=== PATIENT | male | born 1955 | race Caucasian/White ===

== ENCOUNTER 2016-07-12 18:46 | Emergency (ER) | payer OTHER ==
[~2016-07-12 18:46] MED LIST: ATIVAN0.5 M1 PO; MINOCYCLINE HC100 M1 PO; NO MEDICATIONS
[2016-07-12] MEDS ORDERED: NO MEDICATIONS (18:51)
== END 2016-07-13 06:55 | disposition home or self-care (01) ==
LOC: SED 18:46
DX: F10.229 Alcohol dependence with intoxication, unspecified (principal); Z91.018 Allergy to other foods
CPT/HCPCS: 99282

== ENCOUNTER 2016-07-14 16:34 | Inpatient (IN) | payer OTHER ==
--- NOTE | ~2016-07-14 | DS ---
Unit #: [id number] #: [id number] Patient: PEPPER VOGT [id number] [facility] [address] [place] [address] [id number] I MR#: [id number] NAME: PEPPER VOGT ROOM: [facility] Age: 60 Sex: M Admission Date: 07/14/2016 : 1955 Discharge Date: Attending Physician: Bienvenido Silva M.D. Primary Care Physician: Primary Care Physician No DISCHARGE SUMMARY REASON FOR ADMISSION The patient is a 60-year-old, single, white male, admitted with increasing abuse of alcohol and suicidal ideation. HOSPITAL COURSE The patient was admitted to the [facility] and placed on suicide precautions. A routine detoxification protocol for alcohol was ordered. The patient's participation within therapeutic milieu was less than optimal. By 07/19/2016, the patient was requesting discharge citing a need to return to his seeming to be foreclosed upon apartment. Discharge was ordered to take place on 07/20/2016. FINAL DIAGNOSES Alcohol use disorder; mood disorder, unspecified. DISPOSITION ON DISCHARGE The patient is discharged on no psychotropic or other medications. FOLLOWUP Followup will take place through the auspices of community mental health and chemical dependency treatment resources. PROGNOSIS The patient's prognosis remains guarded. Dictated by... Bienvenido Silva M.D. CB/magdalena TD: 07/19/2016 17:48 JOB #: [id number] Unit #: [id number] #: [id number] Patient: PEPPER VOGT DISCHARGE SUMMARY Page 1 of 1 X Bienvenido Silva MD X DISCHARGE SUMMARY
--- NOTE | ~2016-07-14 | PN ---
Unit #: [id number] #: [id number] Patient: PEPPER VOGT [id number] [facility] [address] [place] [address] [id number] MR#: [id number] NAME: PEPPER VOGT ROOM: P171 Age: 60 Sex: M Admission Date: 07/14/2016 : 1955 Attending Physician: Bienvenido Silva M.D. Admitting Physician: Bienvenido Silva M.D. Primary Care Physician: Primary Care Physician Jenni DE ANDA PROGRESS NOTES DATE 07/18/2016 DISCUSSION The patient is more active in the therapeutic milieu and is actually attending group today. His detox continues uneventfully. He continues to express hopelessness and suicidal ideation however. Dictated by... Bienvenido Silva M.D. CB/william TD: 07/18/2016 11:40 JOB #: [id number] [facility] PROGRESS NOTES Page 1 of 1 X Bienvenido Silva MD X PROGRESS NOTE
--- NOTE | ~2016-07-14 | PA ---
Unit #: [id number] #: [id number] Patient: PEPPER VOGT [id number] [facility] [address] [place] [address] [id number] MR#: [id number] NAME: PEPPER VOGT [facility] Age: 60 Sex: M Admission Date: 07/14/2016 : 1955 Date of Assessment: 07/15/2016 Attending Physician: Bienvenido Silva M.D. Admitting Physician: Bienvenido Silva M.D. Primary Care Physician: Primary Care Physician No PSYCHIATRIC ASSESSMENT IDENTIFYING INFORMATION The patient is a 60-year-old white male admitted to the [facility] unit after he had presented to this facility after he had attempted suicidal ideation by cutting his wrist. INFORMANT(S) Patient, patient's reliability is poor. CHIEF COMPLAINT I don't want to live no more. HISTORY OF PRESENT ILLNESS The patient is a 60-year-old white male with a long and well documented history of alcohol dependence. He is admitted to the hospital after he had made a superficial cut on his left wrist while intoxicated. The patient reports that he recently learned that he will lose his housing that had been provided by [facility] secondary to his having entertained multiple visitors at that [facility]. The patient is angry and hopeless related to this. He has been drinking heavy alcohol use since his release from [facility] on the 02 of July. The patient does complain of a history of DTs with alcohol withdrawal. He was last discharged from this facility on 03/15/2016 under similar circumstances. For more complete history of illness please refer to previous dictated notes. PAST PSYCHIATRIC HISTORY Reviewed, no changes. PAST MEDICAL HISTORY Reviewed no changes. MEDICATIONS None. ALLERGIES None. FAMILY HISTORY Reviewed, no changes. SOCIAL HISTORY Reviewed, no changes. Unit #: [id number] #: [id number] Patient: PEPPER VOGT MENTAL STATUS EXAM At this time, reveals the patient to be a disheveled white male appearing significantly older than his stated age of 60 years. He is in no apparent physical distress at the time of examination. He is awake, alert, and oriented in all spheres. His mood is dysphoric and irritable. His affect congruent. Speech is generally relevant and coherent. There are no gross deficits in memory or cognition noted. Intelligence is judged to be in the low average range based on fund of knowledge. The patient is less than optimally cooperative during the interview. He continues to endorse positive suicidal ideation. He denies homicidal ideation. He denies any psychotic symptoms. His judgement and insight appear to be intact. ASSETS AND LIABILITIES Patient's assets to be assessed. Liabilities, lack of resources, homelessness, sociopathy. ADMITTING DIAGNOSIS Alcohol use disorder, dysthymic disorder, antisocial personality disorder. PSYCHIATRIC PLAN/TREATMENT GOALS The patient remains hospitalized for safety and stabilization. Routine detoxification protocol for alcohol has been initiated and the suicidal precautions are in place. It is my suspicion that the patient's claims of suicidal ideation are related to his pending homeless status and I have gently but firmly confronted the patient related thereto redirecting his expectations about this facility can and cannot do with regards to that. ESTIMATED LENGTH OF STAY Five to seven days. Dictated by... Bienvenido Silva M.D. OSMIN/william TD: 07/16/2016 05:38 JOB #: [id number] PSYCHIATRIC ASSESSMENT Page 1 of 1 X Bienvenido Silva MD X PSYCHIATRIC ASSESSMENT
--- NOTE | ~2016-07-14 | HP ---
Unit #: [id number] #: [id number] Patient: ESCOBAR VOGT [id number] [place] [address] [id number] I MR#: [id number] NAME: ESCOBAR VOGT ROOM: P171 Age: 60 Sex: M Admission Date: 07/14/2016 : 1955 Attending Physician: Bienvenido Silva M.D. Admitting Physician: Bienvenido Silva M.D. Primary Care Physician: Primary Care Physician No HISTORY AND PHYSICAL HISTORY OF PRESENT ILLNESS Escobar is a 60 year old admitted to [facility] because of his continued abuse of alcohol. He has had numerous admissions to this facility for treatment of the same. PAST MEDICAL HISTORY Long history of alcohol abuse. PAST SURGICAL HISTORY Nothing reported. ALLERGIES No known drug allergies. SOCIAL HISTORY He smokes one pack per day. Drinks 10 to 12 beers on a daily basis. Denies illicit drug use. FAMILY HISTORY Medically noncontributory. REVIEW OF SYSTEMS CONSTITUTIONAL: No fever or chills. HEENT: Denies any sore throat, ear pain or runny nose. CARDIOVASCULAR: Denies chest pain, irregular heart rhythm or palpitations. CHEST: Denies shortness of breath or cough. No hemoptysis. GASTROINTESTINAL: Denies nausea, vomiting, diarrhea or chronic constipation. ENDOCRINE: Denies history of increased thirst or urination. No recent significant weight loss or gain. GENITOURINARY: Denies dysuria, frequency, or hematuria. SKIN: Denies any rashes. HEMATOLOGIC: Denies history of increased bleeding or bruising. MUSCULOSKELETAL: Denies any hot, swollen joints. No generalized muscle pain. NEUROLOGIC: Denies problems with vision or speech. No frequent, severe headaches. No numbness, tingling or weakness in any extremities. Denies loss of bladder or bowel control. CURRENT MEDICATIONS Detox protocol Unit #: [id number] #: [id number] Patient: ESCOBAR VOGT PHYSICAL EXAMINATION GENERAL: Alert, appearing much older than his stated age of 60. VITAL SIGNS: Blood pressure 132/86, heart rate 80, respirations 16, temperature 98.6. WEIGHT: 170 pounds. HEIGHT: 5'11". SKIN: Warm and dry without rash or lesion. HEENT: Normocephalic. TMs not viewed. Oral and nasal passages clear. Conjunctivae clear. Pupils equal, round and reactive to light and accommodation. Extraocular movements intact. NECK: Supple without lymphadenopathy or thyromegaly. HEART: Regular rate and rhythm without murmur. LUNGS: Clear. ABDOMEN: Soft, nontender. : Not done. EXTREMITIES: No evidence of cyanosis, clubbing or edema. Moves all extremities without focal deficit. NEUROLOGICAL: Grossly within normal limits. Cranial Nerves: II: Visual valdez are intact. III, IV AND : Extraocular movements are intact. Pupils are equal, round and reactive to light. V: Facial sensation is grossly normal. VII: Facial movements and expression are normal. VIII: Auditory acuity grossly intact. IX, X: Uvula is midline. Phonation is normal. XI: Patient shrugs shoulders and turns head normally. XII: Tongue protrudes in the midline. Sensory and Motor Function: Sensory and motor sensation is grossly normal. Motor: moves all extremities well. Coordination: Gait is normal. Deep Tendon Reflexes: Intact. IMPRESSION Psychiatric admission RECOMMENDATIONS PSYCHIATRIC: Per psychiatrist. MEDICAL: I see no contraindications to participating in facility's activities. MEDICAL PROGNOSIS Good. MEDICAL CONDITION Stable. Dictated by... Pepper Stewart P.A.-C. for Ebonie Flores/william TD: 07/16/2016 06:35 JOB #: [id number] Unit #: [id number] #: [id number] Patient: ESCOBAR VOGT HISTORY AND PHYSICAL Page 1 of 1 X Pepper Stewart HISTORY AND PHYSICAL
--- NOTE | ~2016-07-14 | PN ---
Unit #: [id number] #: [id number] Patient: PEPPER VOGT [id number] [facility] [address] [place] [address] [id number] I MR#: [id number] NAME: PEPPER VOGT ROOM: P171 Age: 60 Sex: M Admission Date: 07/14/2016 : 1955 Attending Physician: Bienvenido Silva M.D. Admitting Physician: Bienvenido Silva M.D. Primary Care Physician: Primary Care Physician Jenni DE ANDA PROGRESS NOTES DATE 07/17/2016 DISCUSSION The patient is a abed today and is in as much firmly confronted by this physician regarding his failure to attend in an unit therapeutic activity related to his chemical dependence. The patient states "I just cannot do it" He is firmly confronted with the fact that this physician will plan to discharge him should he continue to fail to attend appropriate therapeutic programming. His detox continues uneventfully. Dictated by... Bienvenido Silva M.D. CB/william TD: 07/18/2016 02:38 JOB #: [id number] [facility] PROGRESS NOTES Page 1 of 1 X Bienvenido Silva MD PROGRESS NOTE
--- NOTE | ~2016-07-14 | PN ---
Unit #: [id number] #: [id number] Patient: PEPPER VOGT [id number] [facility] [address] [place] [address] [id number] I MR#: [id number] NAME: PEPPER VOGT ROOM: P171 Age: 60 Sex: M Admission Date: 07/14/2016 : 1955 Attending Physician: Bienvenido Silva M.D. Admitting Physician: Bienvenido Silva M.D. Primary Care Physician: Primary Care Physician Jenni DE ANDA PROGRESS NOTES DATE 07/16/2016 DISCUSSION The patient complains of dysphoric mood and a great deal of physical discomfort today related to his ongoing symptoms of alcohol withdrawal. We continue current treatment, and the patient remains on suicide precautions given threats of suicide made prior to admission. Dictated by... Bienvenido Silva M.D. CB/jessica TD: 07/16/2016 13:16 JOB #: [id number] [facility] PROGRESS NOTES Page 1 of 1 X Bienvenido Silva MD PROGRESS NOTE
== END 2016-07-20 10:50 | DRG 897 ==
LOC: P1E 16:34
PROC: HZ2ZZZZ Detoxification Services for Substance Abuse Treatment (ICD-10-PCS; principal; 2016-07-15)
DX: F10.10 Alcohol abuse, uncomplicated (principal); R45.851 Suicidal ideations; F17.210 Nicotine dependence, cigarettes, uncomplicated; F39 Unspecified mood [affective] disorder
CPT/HCPCS: 86592

== ENCOUNTER 2016-07-21 18:22 | Emergency (ER) | payer OTHER | END 2016-07-22 02:45 | disposition home or self-care (01) | LOC: CED 18:22 | DX: F10.129 Alcohol abuse with intoxication, unspecified (principal); F17.210 Nicotine dependence, cigarettes, uncomplicated | CPT/HCPCS: 99282 ==

== ENCOUNTER 2016-07-23 12:16 | Emergency (ER) | payer OTHER ==
--- NOTE | ~2016-07-23 | CT4 ---
[facility] A Service of [facility] RADIOLOGY TEXT RESULTS PATIENT: EPPPER VOGT LOCATION: SED : 54 UNIT #: [id number] AGE: [address]: Benny Khan MD SEX: M ORDER DR: [id number] [address] [address] [id number] MR#: [id number] Acc #: [id number] NAME: PEPPER VOGT : 1955 SEX: M STUDY DATE/TIME: 07/23/2016 14:11 UNIT: SED ROOM: STUDY DESCRIPTION: CT Abd and Pelv Wo Cont Attending Physician: Benny Khan M.D. Ordering Physician: Benny Khan M.D. MEDICAL IMAGING REPORT This report is preliminary unless electronic signature is present. EXAM CT abdomen and pelvis without contrast HISTORY Back pain and constipation for 6 days. TECHNIQUE Axial 5 mm images were obtained through the abdomen and pelvis without IV or oral contrast. This CT exam was performed with one or more of the following radiation dose reduction techniques: automatic exposure control, adjustment of mA and/or kV according to patient size, and iterative reconstruction. FINDINGS Lung bases are clear. The liver, gallbladder, spleen, pancreas, adrenal glands and kidneys are normal in appearance. The aorta is normal in size. There is no adenopathy. I do not see evidence of bowel obstruction. There is 1 dilated fluid-filled loop of bowel in the mid-abdomen that I believe represents small intestine. It is up to 6.7 cm in transverse dimension. The colon is mostly collapsed. I do not see any postoperative changes. IMPRESSION 1. There are no acute findings. There is 1 long segment of bowel in the mid-abdomen extending down toward the bladder. It is much larger than normal for small intestine, measuring up to 6.7 cm in transverse dimension, but I do not see evidence of bowel inflammation or obstruction. The colon is not distended. Study is otherwise normal. [facility] A Service of [facility] RADIOLOGY TEXT RESULTS PATIENT: PEPPER VOGT LOCATION: SED : 54 UNIT #: [id number] AGE: [address]: Benny Khan MD SEX: M ORDER DR: Dictated by... Frederic Palacios M.D. THIS IS AN ELECTRONICALLY VERIFIED REPORT Frederic Palacios M.D. at 07/24/2016 7:03 AM FEL/pcl TD: 07/23/2016 22:35 JOB #: [id number] MEDICAL IMAGING REPORT Page 1 of 1
[2016-07-23 14:37] LABS: BASOPHIL# 0.1 X10e3 (0-0.3); BASOPHIL% 0.7 % (0-2.5); DIFF IND NO; HEMATOCRIT 36.8 % (38.0-50.0); HEMOGLOBIN 12.9 gm/dL (13.0-16.0); LYMPHOCYTE# 1.2 X10e3 (1.0-3.5); LYMPHOCYTE% 13.5 % (17.0-45.0); MEAN CELL VOLUME 99.3 FL (83-96); MEAN CORPUSCULAR HEMOGLOBIN 34.7 PG (28-34); MEAN CORPUSCULAR HGB CONC 34.9 g/dL (30-36); MEAN PLATELET VOLUME 6.6 FL (6.5-11.5); MONOCYTE# 1.6 X10e3 (0-1.0); MONOCYTE% 18.6 % (3.0-12.0); NEUTROPHIL# 5.8 X10e3 (1.5-7.1); NEUTROPHIL% 67.2 % (40-75); PLATELET COUNT 255 X10e3 (140-420); RED BLOOD COUNT 3.71 X10e (3.90-5.60); RED CELL DISTRIBUTION WIDTH 13.5 % (11.0-15.5); WHITE BLOOD COUNT 8.7 X10e3 (4.0-10.5)
[2016-07-23 14:38] LABS: URINE SOURCE CLEAN CATCH
[2016-07-23 14:43] LABS: URINE APPEARANCE CLEAR; URINE BILIRUBIN NEG (NEG); URINE BLOOD NEG (NEG); URINE COLOR YELLOW; URINE GLUCOSE NEG (NORM); URINE KETONE NEG (NEG); URINE LEUKOCYTE ESTERASE NEG (NEG); URINE NITRATE NEG (NEG); URINE PROTEIN TRACE (NEG); URINE SPECIFIC GRAVITY 1.025 (1.003-1.035)
[2016-07-23 15:00] LABS: ALBUMIN SERUM 3.8 g/dL (3.5-5.0); BILIRUBIN, DIRECT 0.2 mg/dL (0.0-0.2); BILIRUBIN,INDIRECT 0.3 mg/dL (0.0-0.9); BILIRUBIN,TOTAL 0.5 mg/dL (0.2-2.0); BUN/CREATININE RATIO 13.33; CALCIUM SERUM 8.6 mg/dL (8.4-10.2); CREATININE SERUM 0.6 mg/dL (0.6-1.4); GLOM FILT RATE Estimated 108.6 mL/min (>60); MICRO INDICATED? YES; PROTEIN TOTAL SERUM 7.4 g/dL (6.0-8.3)
[2016-07-23 15:02] LABS: CULTURE INDICATED? YES; URINE BACTERIA 1+ (NEG); URINE GRANULAR CAST 0-2 /[HPF]; URINE HYALINE CAST 0-2 /[HPF]; URINE MUCUS PRESENT; URINE RBC 0-2 /[HPF] (0-2); URINE SQUAMOUS EPITHELIAL CELL FEW /[HPF]; URINE WBC NEG /[HPF] (0-5); URINE WHITE BLOOD CELL CAST 0-2 /[HPF]
== END 2016-07-23 18:35 | disposition home or self-care (01) ==
LOC: SED 12:16
PROVIDERS: Emergency Medicine
DX: K59.00 Constipation, unspecified (principal); F10.129 Alcohol abuse with intoxication, unspecified; E87.1 Hypo-osmolality and hyponatremia
CPT/HCPCS: 36415; 74176; 80048; 80076; 81003; 83690; 85025; 87086; 96360; 99284

== ENCOUNTER 2016-08-02 22:02 | Emergency (ER) | payer OTHER | END 2016-08-03 06:37 | disposition home or self-care (01) | LOC: CED 22:02 | DX: F10.129 Alcohol abuse with intoxication, unspecified (principal); F17.200 Nicotine dependence, unspecified, uncomplicated | CPT/HCPCS: 99284 ==

== ENCOUNTER 2016-08-04 21:15 | Emergency (ER) | payer OTHER ==
--- NOTE | ~2016-08-04 | CR71 ---
[facility] A Service of [facility] RADIOLOGY TEXT RESULTS PATIENT: PEPPER VOGT LOCATION: [facility] : 54 UNIT #: [id number] AGE: [address]: Nitish Painting MD SEX: M ORDER DR: [id number] [facility] [address] [facility]. [place], [place] [address] [id number] E MR#: [id number] Acc #: [id number] NAME: PEPPER VOGT : 1955 SEX: M STUDY DATE/TIME: 08/04/2016 22:10 UNIT: [facility] ROOM: STUDY DESCRIPTION: CR Chest Single View Attending Physician: Nitish Painting M.D. Ordering Physician: Nitish Painting M.D. Primary Care Physician: No Primary Care Physician MEDICAL IMAGING REPORT This report is preliminary unless electronic signature is present EXAM Portable chest INDICATIONS Shortness of air. Chest pain today. PROCEDURE Frontal view chest. FINDINGS Heart size upper limits of normal. No dense consolidation. No pleural fluid or visible pneumothorax. IMPRESSION No active process. No dense consolidation Dictated by... Andre Menard M.D. THIS IS AN ELECTRONICALLY VERIFIED REPORT Andre Menard M.D. at 08/05/2016 9:32 AM BETY/martha TD: 08/04/2016 23:12 JOB #: [id number] MEDICAL IMAGING REPORT Page 1 of 1 COPY
[2016-08-04 22:44] LABS: BASOPHIL% 0.5 % (0-2.5); EOSINOPHIL% 0.6 % (0.0-7.0); HEMATOCRIT 36.2 % (38.0-50.0); HEMOGLOBIN 12.1 gm/dL (13.0-16.0); LYMPHOCYTE# 0.6 X10e3 (1.0-3.5); LYMPHOCYTE% 8.4 % (17.0-45.0); MEAN CELL VOLUME 101.2 FL (83-96); MEAN CORPUSCULAR HEMOGLOBIN 33.7 PG (28-34); MEAN CORPUSCULAR HGB CONC 33.3 g/dL (30-36); MEAN PLATELET VOLUME 7.1 FL (6.5-11.5); MONOCYTE# 0.5 X10e3 (0-1.0); NEUTROPHIL# 5.5 X10e3 (1.5-7.1); NEUTROPHIL% 82.5 % (40-75); PLATELET COUNT 203 X10e3 (140-420); RED BLOOD COUNT 3.58 X10e (3.90-5.60); RED CELL DISTRIBUTION WIDTH 14.4 % (11.0-15.5); WHITE BLOOD COUNT 6.7 X10e3 (4.0-10.5)
[2016-08-04 22:52] LABS: DIFF IND NO
[2016-08-04 23:17] LABS: CALCIUM SERUM 7.5 mg/dL (8.4-10.2); CREATININE SERUM 0.7 mg/dL (0.6-1.4); GLOM FILT RATE Estimated 101.9 mL/min (>60)
== END 2016-08-05 04:17 | disposition home or self-care (01) ==
LOC: CED 21:15
PROVIDERS: Emergency Medicine
DX: F10.129 Alcohol abuse with intoxication, unspecified (principal); E87.6 Hypokalemia; E87.1 Hypo-osmolality and hyponatremia; F17.200 Nicotine dependence, unspecified, uncomplicated
CPT/HCPCS: 36415; 71010; 80048; 85025; 96360; 99284; G0480

== ENCOUNTER 2016-08-14 20:05 | Emergency (ER) | payer OTHER | END 2016-08-15 00:50 | disposition home or self-care (01) | LOC: CED 20:05 | DX: F10.129 Alcohol abuse with intoxication, unspecified (principal); F17.200 Nicotine dependence, unspecified, uncomplicated | CPT/HCPCS: 99284 ==

== ENCOUNTER 2016-08-21 19:02 | Emergency (ER) | payer OTHER ==
[2016-08-21 19:55] LABS: URINE SOURCE CLEAN CATCH
[2016-08-21 19:57] LABS: URINE APPEARANCE CLEAR; URINE BILIRUBIN NEG (NEG); URINE BLOOD NEG (NEG); URINE COLOR YELLOW; URINE GLUCOSE NEG (NORM); URINE KETONE NEG (NEG); URINE LEUKOCYTE ESTERASE NEG (NEG); URINE NITRATE NEG (NEG); URINE PROTEIN NEG (NEG); URINE SPECIFIC GRAVITY <=1.005 (1.003-1.035); URINE UROBILINOGEN 0.2 MG/DL (NORM)
[2016-08-21 19:58] LABS: MICRO INDICATED? NO
== END 2016-08-21 21:42 | disposition home or self-care (01) ==
LOC: SED 19:02
PROVIDERS: Nurse Practitioner
DX: S23.3XXA Sprain of ligaments of thoracic spine, initial encounter (principal); F17.210 Nicotine dependence, cigarettes, uncomplicated; W18.39XA Other fall on same level, initial encounter; Y92.89 Other specified places as the place of occurrence of the external cause
CPT/HCPCS: 81003; 96372; 99284; J1885

== ENCOUNTER 2016-08-27 23:00 | Inpatient (IN) | payer OTHER ==
--- NOTE | ~2016-08-27 | PN ---
Unit #: [id number] #: [id number] Patient: PEPPER VOGT [id number] [facility] [address] [place] [address] [id number] I MR#: [id number] NAME: PEPPER VOGT ROOM: P208 Age: 60 Sex: M Admission Date: 08/28/2016 : 1955 Attending Physician: Bienvenido Silva M.D. Admitting Physician: Bienvenido Silva M.D. Primary Care Physician: Primary Care Physician Jenni DE ANDA PROGRESS NOTES DATE 08/30/2016 DISCUSSION The patient is abed today continuing to complain of significant symptoms of alcohol withdrawal as well as depressed mood and ongoing suicidal ideation. His expectations of inpatient care are today firmly redirection and I have discussed today with the patient possible initiation of disulfiram. He will be given information regarding this medication today and we will consider it's initiation in the next couple of days. Dictated by... Bienvenido Silva M.D. CB/william TD: 08/31/2016 03:09 JOB #: [id number] [facility] PROGRESS NOTES Page 1 of 1 X Bienvenido Silva MD PROGRESS NOTE
--- NOTE | ~2016-08-27 | DS ---
Unit #: [id number] #: [id number] Patient: PEPPER VOGT [id number] [facility] [address] [place] [address] [id number] I MR#: [id number] NAME: PEPPER VOGT ROOM: [facility] Age: 60 Sex: M Admission Date: 08/28/2016 : 1955 Discharge Date: 09/02/2016 Attending Physician: Bienvenido Silva M.D. Primary Care Physician: Primary Care Physician No DISCHARGE SUMMARY REASON FOR ADMISSION The patient is a 60-year-old white male, admitted to the [address] [place] [address] unit with recurrent abuse of alcohol. HOSPITAL COURSE The patient was admitted to the [address] [place] [address] unit and placed on routine detoxification protocol for alcohol. This physician did discuss initiation of Antabuse with the patient, however, the patient declined initiation of this medication. Otherwise, the patient remained seclusive to room with a little with any participation within therapeutic milieu. He requested discharge on 09/02/2016 and it was so ordered. FINAL DIAGNOSIS Alcohol use disorder. DISPOSITION ON DISCHARGE No psychotropic or other medications were ordered at the time of discharge. FOLLOWUP Followup will place through the auspices of community mental health resources. PROGNOSIS The patient's prognosis remains guarded. Dictated by... Bienvenido Silva M.D. CB/magdalena TD: 09/03/2016 06:25 JOB #: [id number] Unit #: [id number] #: [id number] Patient: PEPPER VOGT DISCHARGE SUMMARY Page 1 of 1 X Bienvenido Silva MD X DISCHARGE SUMMARY
--- NOTE | ~2016-08-27 | PN ---
Unit #: [id number] #: [id number] Patient: PEPPER VOGT [id number] [facility] [address] [place] [address] [id number] I MR#: [id number] NAME: PEPPER VOGT ROOM: P208 Age: 60 Sex: M Admission Date: 08/28/2016 : 1955 Attending Physician: Bienvenido Silva M.D. Admitting Physician: Bienvenido Silva M.D. Primary Care Physician: Primary Care Physician Jenni JACKSON NOTES DATE 08/31/2016 DISCUSSION The patient continues to complain of severe symptoms of depression and is reporting that he is "unable to walk. I will ask for medical consult regarding the patient's issues of difficulty with ambulation. His detox continued uneventfully and his expectations of inpatient care are today firmly redirected. Dictated by... Bienvenido Silva M.D. CB/william TD: 08/31/2016 21:17 JOB #: [id number] [facility] JACKSON NOTES Page 1 of 1 X Bienvenido Silva MD PROGRESS NOTE
--- NOTE | ~2016-08-27 | PN ---
Unit #: [id number] #: [id number] Patient: PEPPER VOGT [id number] [facility] [address] [place] [address] [id number] I MR#: [id number] NAME: PEPPER VOGT ROOM: P208 Age: 60 Sex: M Admission Date: 08/28/2016 : 1955 Attending Physician: Bienvenido Silva M.D. Admitting Physician: Bienvenido Silva M.D. Primary Care Physician: Primary Care Physician No [facility] PROGRESS NOTES DATE 09/01/2016 DISCUSSION The patient is ambulating better today and his detox continues uneventfully. Should he sustain progress, discharge will likely take place tomorrow. Dictated by... Bienvenido Silva M.D. CB/karen TD: 09/01/2016 15:43 JOB #: [id number] [facility] PROGRESS NOTES Page 1 of 1 X Bienvenido Silva MD X PROGRESS NOTE
--- NOTE | ~2016-08-27 | HP ---
Unit #: [id number] #: [id number] Patient: ESCOBAR VOGT [id number] [place] [address] [id number] MR#: [id number] NAME: ESCOBAR VOGT ROOM: P208 Age: 60 Sex: M Admission Date: 08/28/2016 : 1955 Attending Physician: Bienvenido Silva M.D. Admitting Physician: Bienvenido Silva M.D. Primary Care Physician: Primary Care Physician No HISTORY AND PHYSICAL HISTORY OF PRESENT ILLNESS Escobar is a 60 year old with long history of alcohol abuse. He continues to drink. He is detoxing. He has had multiple admissions to this facility for the same. PAST MEDICAL HISTORY 1. Long history of alcohol abuse. 2. History of colon polyps. PAST SURGICAL HISTORY Polypectomy ALLERGIES No known drug allergies. SOCIAL HISTORY Smokes one pack per day. Drinks at least 12 beers on a daily basis. Denies illicit drug use. FAMILY HISTORY Medically noncontributory. REVIEW OF SYSTEMS CONSTITUTIONAL: No fever or chills. HEENT: Denies any sore throat, ear pain or runny nose. CARDIOVASCULAR: Denies chest pain, irregular heart rhythm or palpitations. CHEST: Denies shortness of breath or cough. No hemoptysis. GASTROINTESTINAL: Denies nausea, vomiting, diarrhea or chronic constipation. ENDOCRINE: Denies history of increased thirst or urination. No recent significant weight loss or gain. GENITOURINARY: Denies dysuria, frequency, or hematuria. SKIN: Denies any rashes. HEMATOLOGIC: Denies history of increased bleeding or bruising. MUSCULOSKELETAL: Denies any hot, swollen joints. No generalized muscle pain. NEUROLOGIC: Denies problems with vision or speech. No frequent, severe headaches. No numbness, tingling or weakness in any extremities. Denies loss of bladder or bowel control. CURRENT MEDICATIONS Detox protocol Unit #: [id number] #: [id number] Patient: ESCOBAR VOGT PHYSICAL EXAMINATION GENERAL: Alert, appearing much older than his stated age of 60, in no apparent distress. VITAL SIGNS: Blood pressure 120/96, heart rate 80, respirations 16, temperature 98.6. WEIGHT: 175 pounds. HEIGHT: 5'11". SKIN: Warm and dry without rash or lesion. HEENT: Normocephalic. TMs not viewed. Oral and nasal passages clear. Conjunctivae clear. Pupils equal, round and reactive to light and accommodation. Extraocular movements intact. NECK: Supple without lymphadenopathy or thyromegaly. HEART: Regular rate and rhythm without murmur. LUNGS: Clear. ABDOMEN: Soft, nontender. : Not done. EXTREMITIES: No evidence of cyanosis, clubbing or edema. Moves all extremities without focal deficit. NEUROLOGICAL: Grossly within normal limits. Cranial Nerves: II: Visual valdez are intact. III, IV AND : Extraocular movements are intact. Pupils are equal, round and reactive to light. V: Facial sensation is grossly normal. VII: Facial movements and expression are normal. VIII: Auditory acuity grossly intact. IX, X: Uvula is midline. Phonation is normal. XI: Patient shrugs shoulders and turns head normally. XII: Tongue protrudes in the midline. Sensory and Motor Function: Sensory and motor sensation is grossly normal. Motor: moves all extremities well. Coordination: Gait is normal. Deep Tendon Reflexes: Intact. IMPRESSION Psychiatric admission RECOMMENDATIONS PSYCHIATRIC: Per psychiatrist. MEDICAL: I see no contraindications to participating in facility's activities. MEDICAL PROGNOSIS Good. MEDICAL CONDITION Stable. Dictated by... Satya NevesAMaximiliano. for Ebonie Flores/william TD: 08/29/2016 21:40 JOB #: [id number] Unit #: [id number] #: [id number] Patient: ESCOBAR VOGT HISTORY AND PHYSICAL Page 1 of 1 X Pepper Stewart HISTORY AND PHYSICAL
--- NOTE | ~2016-08-27 | PA ---
Unit #: [id number] #: [id number] Patient: PEPPER VOGT [id number] [facility] [address] [place] [address] [id number] I MR#: [id number] NAME: PEPPER VOGT ROOM: [facility] Age: 60 Sex: M Admission Date: 08/28/2016 : 1955 Date of Assessment: 08/29/2016 Attending Physician: Bienvenido Silva M.D. Admitting Physician: Bienvenido Silva M.D. Primary Care Physician: Primary Care Physician No PSYCHIATRIC ASSESSMENT IDENTIFYING INFORMATION The patient is a 60-year-old single white male admitted to the [address] [place] [address] with recurrent abuse of alcohol and claimed suicidal ideation. CHIEF COMPLAINT None given. INFORMANT(S) Patient and chart, reliability good. HISTORY OF PRESENT ILLNESS The patient is a 60-year-old white male admitted to the hospital in a state of intoxication. The patient reported that he was brought to [facility] but is uncertain how he got to that facility. The patient had reported positive suicidal ideation with plan to shoot himself. The patient has a history of multiple previous admissions to this facility but has shown little investment in post-discharge treatment, and in fact has shown little investment in treatment while in the hospital. He was last discharged from this facility on 07/20/2016 but maintained sobriety for no significant period of time. When seen today, the patient continues to endorse positive suicidal ideation. He denies homicidal ideation. He exhibits no signs or symptoms of withdrawal. PAST PSYCHIATRIC HISTORY As above. PAST MEDICAL HISTORY Reviewed, no changes. MEDICATIONS None. ALLERGIES None. FAMILY HISTORY Reviewed, no changes. SOCIAL HISTORY Reviewed, no changes. MENTAL STATUS EXAMINATION Examination at this time reveals the patient to be an obese disheveled Unit #: [id number] #: [id number] Patient: PEPPER VOGT white male appearing significantly older than his stated age. He is in no apparent physical distress at the time of examination. He is awake, alert, and oriented in all spheres. His mood is dysphoric, his affect blunted. Speech is generally well coherent. No gross deficits in memory or cognition noted. Intelligence is judged to be in the low average range based on fund of knowledge. The patient is cooperative throughout the interview. He is currently endorsing positive suicidal ideation. He denies homicidal ideation and denies any psychotic symptoms. His judgment and insight appear to be significantly impaired. ASSETS AND LIABILITIES The patient's assets are to be assessed. Liabilities: Lack of resources. DIAGNOSTIC IMPRESSION 1. Alcohol use disorder. 2. Dysthymic disorder. TREATMENT PLAN The patient remains hospitalized for safety and stabilization. Suicide precautions remain in place. Routine detoxification protocol has been ordered. The patient will participate in appropriate order of milieu activities and transfer to a chemical dependence unit will be ordered though the patient's participation on such unit is highly unlikely. ESTIMATED LENGTH OF STAY 5 days. Dictated by... Bienvenido Silva M.D. Bonita TD: 08/29/2016 14:13 JOB #: [id number] PSYCHIATRIC ASSESSMENT Page 1 of 1 X Bienvenido Silva MD X PSYCHIATRIC ASSESSMENT
[2016-08-29 10:16] LABS: BASOPHIL% 0.9 % (0-2.5); EOSINOPHIL# 0.1 X10e3 (0-0.7); EOSINOPHIL% 3.2 % (0.0-7.0); HEMATOCRIT 34.9 % (38.0-50.0); HEMOGLOBIN 11.6 gm/dL (13.0-16.0); LYMPHOCYTE% 22.1 % (17.0-45.0); MEAN CORPUSCULAR HEMOGLOBIN 34.3 PG (28-34); MEAN CORPUSCULAR HGB CONC 33.3 g/dL (30-36); MEAN PLATELET VOLUME 7.8 FL (6.5-11.5); MONOCYTE# 0.8 X10e3 (0-1.0); MONOCYTE% 17.6 % (3.0-12.0); NEUTROPHIL# 2.5 X10e3 (1.5-7.1); NEUTROPHIL% 56.2 % (40-75); PLATELET COUNT 168 X10e3 (140-420); RED BLOOD COUNT 3.39 X10e (3.90-5.60); RED CELL DISTRIBUTION WIDTH 15.5 % (11.0-15.5); WHITE BLOOD COUNT 4.4 X10e3 (4.0-10.5)
[2016-08-29 10:24] LABS: ALBUMIN SERUM 2.7 g/dL (3.5-5.0); BILIRUBIN,TOTAL 0.5 mg/dL (0.2-2.0); BUN/CREATININE RATIO 13.33; CALCIUM SERUM 8.2 mg/dL (8.4-10.2); CREATININE SERUM 0.6 mg/dL (0.6-1.4); GLOM FILT RATE Estimated 108.6 mL/min (>60); POTASSIUM 3.9 mmol/L (3.5-5.1); PROTEIN TOTAL SERUM 5.3 g/dL (6.0-8.3)
[2016-08-29 10:26] LABS: DIFF IND NO
[2016-09-01 07:59] LABS: URINE SOURCE CLEAN CATCH
[2016-09-01 09:54] LABS: URINE APPEARANCE CLEAR; URINE BILIRUBIN NEG (NEG); URINE BLOOD NEG (NEG); URINE COLOR YELLOW; URINE GLUCOSE NEG (NEG); URINE KETONE NEG (NEG); URINE LEUKOCYTE ESTERASE NEG (NEG); URINE NITRATE NEG (NEG); URINE PROTEIN NEG (NEG); URINE SPECIFIC GRAVITY 1.015 (1.003-1.035); URINE UROBILINOGEN 0.2 MG/DL (NEG)
[2016-09-01 10:11] LABS: AMPHETAMINE NEG (NEG); BARBITURATES POS (NEG); BENZODIAZEPINES POS (NEG); COCAINE NEG (NEG); MARIJUANA NEG (NEG); OPIATES NEG (NEG); TRICYCLIC ANTIDEPRESSANTS NEG (NEG); U METHADONE NEG (NEG)
== END 2016-09-02 16:12 | disposition home or self-care (01) | DRG 897 ==
LOC: P2S 08-28 19:21 → P1S 08-28 19:21 → P2S 08-29 16:15
PROVIDERS: Specialist
PROC: HZ2ZZZZ Detoxification Services for Substance Abuse Treatment (ICD-10-PCS; principal; 2016-08-28)
DX: F10.10 Alcohol abuse, uncomplicated (principal); F34.1 Dysthymic disorder; F17.210 Nicotine dependence, cigarettes, uncomplicated; Z86.010 Personal history of colon polyps
CPT/HCPCS: 80053; 80307; 81003; 85025; 86592

== ENCOUNTER 2016-09-02 23:09 | Emergency (ER) | payer OTHER | END 2016-09-03 07:52 | disposition short-term general hospital (02) | LOC: CED 23:09 | DX: F10.129 Alcohol abuse with intoxication, unspecified (principal); Y90.8 Blood alcohol level of 240 mg/100 ml or more; R45.851 Suicidal ideations; F17.200 Nicotine dependence, unspecified, uncomplicated | CPT/HCPCS: 36415; 96360; 96361; 99285; G0480 ==

== ENCOUNTER 2016-09-03 02:00 | Inpatient (IN) | payer OTHER ==
[~2016-09-03] VITALS: Ht 180.3 cm; Wt 79.4 kg
--- NOTE | ~2016-09-03 | HP ---
Unit #: [id number] #: [id number] Patient: PEPPER VOGT [id number] [facility] [address] [place] [address] [id number] I MR#: [id number] NAME: PEPPER VOGT ROOM: P114 Age: 60 Sex: M Admission Date: 09/03/2016 : 1955 Attending Physician: Bienvenido Silva M.D. Admitting Physician: Bienvenido Silva M.D. Primary Care Physician: Generic Doctor Not In System HISTORY AND PHYSICAL NOTE The patient is a 60-year-old male admitted to [facility] on 09/03/2016 to detox from alcohol. The patient had a recent admission on 08/28/2016 where full history and physical was completed. That history and physical has been reviewed. No changes need to be made. Dictated by... Bobbi Cristina A.P.R.N. EF/bzg TD: 09/03/2016 15:35 JOB #: [id number] HISTORY AND PHYSICAL Page 1 of 1 X BOBBI CRISTINA APRN X HISTORY AND PHYSICAL
--- NOTE | ~2016-09-03 | PN ---
Unit #: [id number] #: [id number] Patient: PEPPER VOGT [id number] [facility] [address] [place] [address] [id number] I MR#: [id number] NAME: PEPPER VOGT ROOM: 14 Age: 60 Sex: M Admission Date: 09/03/2016 : 1955 Attending Physician: Bienvenido Silva M.D. Admitting Physician: Bienvenido Silva M.D. Primary Care Physician: Generic Doctor Not In System [facility] PROGRESS NOTES DATE 09/04/2016 DISCUSSION The patient is soundly sleeping on his room lockout today. We continue room lockout to assure the patient's safety as he had made suicidal threats while intoxicated at the time of admission. Dictated by... Bienvenido Silva M.D. CB/william TD: 09/04/2016 22:51 JOB #: [id number] [facility] PROGRESS NOTES Page 1 of 1 X Bienvenido Silva MD X PROGRESS NOTE
--- NOTE | ~2016-09-03 | DS ---
Unit #: [id number] #: [id number] Patient: PEPPER VOGT [id number] [facility] [address] [place] [address] [id number] MR#: [id number] NAME: PEPPER VOGT ROOM: [facility] Age: 60 Sex: M Admission Date: 09/03/2016 : 1955 Discharge Date: 09/06/2016 Attending Physician: Bienvenido Silva M.D. Primary Care Physician: Generic Doctor Not In System DISCHARGE SUMMARY REASON FOR ADMISSION The patient is a 60-year-old white male, admitted to the [address] [place] [address] unit after he had left this facility, but gotten intoxicated and returned claiming to be suicidal. HOSPITAL COURSE The patient was admitted to the [address] [place] [address] and placed on room lockout precautions. A routine detoxification protocol for alcohol was not initiated as the patient had only been out of the hospital for less than 24 hours. The patient's participation within therapeutic milieu was less than optimal. By 09/06/2016, however, he exhibited no signs or symptoms of withdrawal and requested discharge. Denying suicidal ideation. It was so ordered. FINAL DIAGNOSES Alcohol use disorder; substance-induced mood disorder. DISPOSITION ON DISCHARGE No psychotropic or other medications were ordered at the time of discharge. FOLLOWUP Followup will take place through the auspices of community mental health and chemical dependency treatment resources. PROGNOSIS The patient's prognosis remains guarded. Dictated by... Bienvenido Silva M.D. CB/magdalena TD: 09/06/2016 22:49 JOB #: [id number] Unit #: [id number] #: [id number] Patient: PEPPER VOGT DISCHARGE SUMMARY Page 1 of 1 X Bienvenido Silva MD X DISCHARGE SUMMARY
--- NOTE | ~2016-09-03 | PA ---
Unit #: [id number] #: [id number] Patient: PEPPER VOGT [id number] [facility] [address] [place] [address] [id number] I MR#: [id number] NAME: PEPPER VOGT ROOM: [facility] Age: 60 Sex: M Admission Date: 09/03/2016 : 1955 Date of Assessment: 09/03/2016 Attending Physician: Bienvenido Silva M.D. Admitting Physician: Bienvenido Silva M.D. Primary Care Physician: Generic Doctor Not In System PSYCHIATRIC ASSESSMENT IDENTIFYING INFORMATION The patient is a 60-year-old white male just discharged from this facility yesterday. He became intoxicated almost immediately and returned to [facility] with a blood alcohol or 0.246. He was reporting positive suicidal ideation on admission with a plan to "cut his throat." CHIEF COMPLAINT None given. INFORMANT Patient and chart, reliability good. HISTORY OF PRESENT ILLNESS The patient is a 60-year-old white male who left this facility yesterday, became intoxicated almost immediately, and then presented to [facility] where he was medically cleared and released. He was then found down on the loan at this facility after attempting to gain access here. He had reported positive suicidal ideation at the time of admission but today denies such thinking. For more complete history of present illness, please refer to previously dictated notes. PAST PSYCHIATRIC HISTORY Reviewed, no changes. PAST MEDICAL HISTORY Reviewed, no changes. MEDICATIONS None. ALLERGIES None. FAMILY HISTORY Reviewed, no changes. SOCIAL HISTORY Reviewed, no changes. MENTAL STATUS EXAMINATION Examination at this time reveals the patient to be a disheveled white male appearing his stated age. He is dressed in hospital garb. He is awake, alert, and oriented in all spheres. His mood is calm, his affect Unit #: [id number] #: [id number] Patient: PEPPER VOGT constricted. Speech is generally well-coherent. There are no gross deficits in memory or cognition noted. Intelligence is judged to be in the low average range, based on fund of knowledge. The patient is generally cooperative during interview. He is currently denying suicidal or homicidal ideation, and denies any psychotic symptoms. His judgment and insight appear to be at baseline. ASSETS AND LIABILITIES The patient's assets are to be assessed. Liabilities: Ongoing substance use, lack of investment in treatment. DIAGNOSTIC IMPRESSION 1. Alcohol use disorder. 2. Substance-induced mood disorder. TREATMENT PLAN The patient remains hospitalized for safety and stabilization. He is on a [id number]. I will not reinitiate a detoxification protocol as the patient was just out of the hospital for 1 day. I will, however, given the patient's threat of suicide order that the patient be placed on suicide precautions and room lockout from 6 a.m. to 10 p.m. in order to assure that he is safe. ESTIMATED LENGTH OF STAY 5 days. Dictated by... Bienvenido Silva M.D. Bonita TD: 09/03/2016 13:50 JOB #: [id number] PSYCHIATRIC ASSESSMENT Page 1 of 1 X Bienvenido Silva MD X PSYCHIATRIC ASSESSMENT
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
== END 2016-09-06 16:05 | disposition home or self-care (01) | DRG 897 ==
LOC: P1E 08:13 → P1S 08:13
PROC: HZ2ZZZZ Detoxification Services for Substance Abuse Treatment (ICD-10-PCS; principal; 2016-09-03)
DX: F10.129 Alcohol abuse with intoxication, unspecified (principal); Y90.8 Blood alcohol level of 240 mg/100 ml or more

== ENCOUNTER 2016-09-13 18:19 | Emergency (ER) | payer OTHER ==
[~2016-09-13] VITALS: Ht 170.2 cm; Wt 79.4 kg
== END 2016-09-14 03:05 | disposition home or self-care (01) ==
LOC: CED 18:19
DX: F10.120 Alcohol abuse with intoxication, uncomplicated (principal); F17.210 Nicotine dependence, cigarettes, uncomplicated
CPT/HCPCS: 99284

== ENCOUNTER 2016-09-16 16:17 | Emergency (ER) | payer OTHER ==
[~2016-09-16] VITALS: Ht 182.9 cm; Wt 77.1 kg
--- NOTE | ~2016-09-16 | EKG ---
PATIENT: PEPPER VOGT UNIT #: [id number] Ventricular Rate: 93 BPM Atrial Rate: 93 BPM P-R Interval: 188 ms QRS Duration: 82 ms Q-T Interval: 374 ms QTC Calculation(Bezet): 465 ms P Cabot: 58 degrees Calculated R Cabot: 35 degrees Calculated T Cabot: 54 degrees Diagnosis Line: Sinus rhythm with Premature atrial complexes with Diagnosis Line: Aberrant conduction Diagnosis Line: Septal infarct , age undetermined Diagnosis Line: Abnormal ECG Diagnosis Line: When compared with ECG of 12-OCT-2015 15:38, Diagnosis Line: Aberrant conduction is now Present Diagnosis Line: Confirmed by JENNIFER WOLFF MD ([id number]) on Diagnosis Line: 09/19/2016 8:53:27 AM INTERPRETING MD: NEW ALON[place]
--- NOTE | ~2016-09-16 | CR72 ---
[facility] A Service of [facility] RADIOLOGY TEXT RESULTS PATIENT: PEPPER VOGT LOCATION: [place] : 53 UNIT #: [id number] AGE: [address]: Fransisco Galindo MD SEX: M ORDER DR: [id number] [address] [address] [id number] E MR#: [id number] Acc #: [id number] NAME: PEPPER VOGT : 1955 SEX: M STUDY DATE/TIME: 09/16/2016 23:02 UNIT: [facility] ROOM: STUDY DESCRIPTION: CR Chest Single View Portable Attending Physician: Fransisco Galindo M.D. Ordering Physician: Talia Muhammad M.D. Primary Care Physician: Primary Care Physician No MEDICAL IMAGING REPORT This report is preliminary unless electronic signature is present EXAM Portable chest DATE 09/16/2016 HISTORY Shortness of breath today COMPARISON AP portable chest 08/04/2016 FINDINGS Lungs are hyperinflated and appear emphysematous. Benign calcified granulomas present in the right lower lobe. No acute airspace disease identified. No pleural effusion or pneumothorax is evident. Suspected calcified loose body at the inferior margin left shoulder joint with advanced left shoulder joint space narrowing and undersurface osteophyte formation. IMPRESSION 1. Pulmonary hyperinflation suggesting emphysematous change. 2. No acute chest findings. Dictated by... Pippa Cruz M.D. THIS IS AN ELECTRONICALLY VERIFIED REPORT Pippa Cruz M.D. at 09/17/2016 9:42 PM H/to TD: 09/17/2016 15:40 JOB #: [id number] [facility] A Service of [facility] RADIOLOGY TEXT RESULTS PATIENT: PEPPER VOGT LOCATION: [facility] : 53 UNIT #: [id number] AGE: [address]: Fransisco Galindo MD SEX: M ORDER DR: MEDICAL IMAGING REPORT Page 1 of 1 COPY
[2016-09-16 23:13] LABS: POC - CKMB 1.5 ng/mL (0.0-7.9); POC - TROPONIN <0.05 ng/mL (<=0.05)
[2016-09-16 23:13] LABS: URINE SOURCE CLEAN CATCH
[2016-09-16 23:25] LABS: BASOPHIL% 0.8 % (0-2.5); EOSINOPHIL# 0.3 X10e3 (0-0.7); EOSINOPHIL% 5.7 % (0.0-7.0); HEMATOCRIT 38.4 % (38.0-50.0); HEMOGLOBIN 12.9 gm/dL (13.0-16.0); MEAN CELL VOLUME 100.2 FL (83-96); MEAN CORPUSCULAR HEMOGLOBIN 33.6 PG (28-34); MEAN CORPUSCULAR HGB CONC 33.5 g/dL (30-36); MEAN PLATELET VOLUME 7.4 FL (6.5-11.5); MONOCYTE# 0.3 X10e3 (0-1.0); MONOCYTE% 7.2 % (3.0-12.0); NEUTROPHIL# 3.1 X10e3 (1.5-7.1); NEUTROPHIL% 64.3 % (40-75); PLATELET COUNT 204 X10e3 (140-420); RED BLOOD COUNT 3.83 X10e (3.90-5.60); RED CELL DISTRIBUTION WIDTH 15.7 % (11.0-15.5); URINE APPEARANCE CLEAR; URINE BILIRUBIN NEG (NEG); URINE BLOOD NEG (NEG); URINE COLOR YELLOW; URINE GLUCOSE NEG (NEG); URINE KETONE NEG (NEG); URINE LEUKOCYTE ESTERASE NEG (NEG); URINE NITRATE NEG (NEG); URINE PROTEIN NEG (NEG); URINE SPECIFIC GRAVITY 1.005 (1.003-1.035); URINE UROBILINOGEN 0.2 MG/DL (NEG); WHITE BLOOD COUNT 4.8 X10e3 (4.0-10.5)
[2016-09-16 23:27] LABS: DIFF IND NO
[2016-09-16 23:31] LABS: CULTURE INDICATED? NO
[2016-09-16 23:34] LABS: AMPHETAMINE NEG (NEG); BARBITURATES NEG (NEG); BENZODIAZEPINES NEG (NEG); COCAINE NEG (NEG); MARIJUANA NEG (NEG); OPIATES NEG (NEG); TRICYCLIC ANTIDEPRESSANTS NEG (NEG); U METHADONE NEG (NEG)
[2016-09-16 23:39] LABS: INR 0.9; PARTIAL THROMBOPLASTIN TIME 29.5 SECONDS (23.5-31.3)
[2016-09-17 00:49] LABS: ALBUMIN SERUM 3.2 g/dL (3.5-5.0); ALKALINE PHOSPHATASE 70 U/L (32-92); ALT (SGPT) 30 U/L (10-40); AST (SGOT) 55 U/L (10-42); BILIRUBIN, DIRECT 0.2 mg/dL (0.0-0.2); BILIRUBIN,INDIRECT 0.8 mg/dL (0.0-0.9); BLOOD UREA NITROGEN <5 mg/dL (9-23); CALCIUM SERUM 8.1 mg/dL (8.4-10.2); CARBON DIOXIDE 21 mmol/L (22-31); CHLORIDE 105 mmol/L (100-111); CREATININE SERUM 0.5 mg/dL (0.6-1.4); GLUCOSE FASTING 83 mg/dL (70-110); POTASSIUM 3.5 mmol/L (3.5-5.1); PROTEIN TOTAL SERUM 6.1 g/dL (6.0-8.3); SODIUM 139 mmol/L (135-145)
[2016-09-17 00:50] LABS: ALCOHOL BLOOD 326 mg/dL (0)
[2016-09-17 02:10] LABS: POC - CKMB 1.5 ng/mL (0.0-7.9); POC - TROPONIN <0.05 ng/mL (<=0.05)
== END 2016-09-17 04:13 | disposition home or self-care (01) ==
LOC: CED 16:17
PROVIDERS: Emergency Medicine
DX: F10.129 Alcohol abuse with intoxication, unspecified (principal); J44.9 Chronic obstructive pulmonary disease, unspecified; F17.210 Nicotine dependence, cigarettes, uncomplicated; Z59.0 Homelessness
CPT/HCPCS: 36415; 71010; 80048; 80076; 80307; 81003; 82553; 83880; 84443; 84484; 85025; 85610; 85730; 93005; 99284; G0480

== ENCOUNTER 2016-09-22 22:44 | Emergency (ER) | payer OTHER | END 2016-09-23 09:26 | disposition home or self-care (01) | LOC: CED 22:44 | DX: F10.129 Alcohol abuse with intoxication, unspecified (principal); M54.9 Dorsalgia, unspecified; G89.29 Other chronic pain | CPT/HCPCS: 99284 ==

== ENCOUNTER 2016-09-25 21:19 | Emergency (ER) | payer OTHER ==
[~2016-09-25] VITALS: Ht 177.8 cm; Wt 77.1 kg
--- NOTE | ~2016-09-25 | CR72 ---
[facility] A Service of [facility] RADIOLOGY TEXT RESULTS PATIENT: PEPPER VOGT LOCATION: [facility] : 53 UNIT #: [id number] AGE: [address]: Miguel Chicas MD SEX: M ORDER DR: [id number] [facility] [address] [facility]. [place], [place] [address] [id number] MR#: [id number] Acc #: [id number] NAME: PEPPER VOGT : 1955 SEX: M STUDY DATE/TIME: 09/26/2016 5:12 UNIT: [facility] ROOM: STUDY DESCRIPTION: CR Chest Single View Portable Attending Physician: Andre Chicas M.D. Ordering Physician: Jose Haley M.D. Primary Care Physician: Primary Care Physician No MEDICAL IMAGING REPORT This report is preliminary unless electronic signature is present EXAM Chest x-ray 09/26/2016 HISTORY 60-year-old male in the ED complaining of shortness of air and weakness beginning earlier tonight. TECHNIQUE AP portable chest x-ray. FINDINGS Heart size and pulmonary vascularity are within normal limits. No visible pulmonary infiltrate or pleural effusion. Benign calcified granulomas in the right lung base and mediastinum. Tortuous thoracic aorta. No change since 09/16/2016. IMPRESSION No active disease. No change since 09/16/2016. Dictated by... Hmeanth Patrick M.D. THIS IS AN ELECTRONICALLY VERIFIED REPORT Hemanth Patrick M.D. at 09/26/2016 6:08 AM MORALES/christie TD: 09/26/2016 06:02 JOB #: [id number] MEDICAL IMAGING REPORT Page 1 of 1 COPY
[2016-09-25 23:03] LABS: POC - CKMB 2.8 ng/mL (0.0-7.9); POC - TROPONIN <0.05 ng/mL (<=0.05)
== END 2016-09-26 06:00 | disposition home or self-care (01) ==
LOC: CED 21:19
PROVIDERS: Emergency Medicine
DX: F10.129 Alcohol abuse with intoxication, unspecified (principal)
CPT/HCPCS: 36415; 71010; 82553; 84484; 99284

== ENCOUNTER 2016-09-26 07:52 | Emergency (ER) | payer OTHER ==
[~2016-09-26] VITALS: Ht 180.3 cm; Wt 77.1 kg
== END 2016-09-26 13:28 | disposition home or self-care (01) ==
LOC: CED 07:52
DX: F10.10 Alcohol abuse, uncomplicated (principal); F17.200 Nicotine dependence, unspecified, uncomplicated
CPT/HCPCS: 99284

== ENCOUNTER 2016-09-28 01:41 | Emergency (ER) | payer OTHER ==
[~2016-09-28] VITALS: Ht 175.3 cm; Wt 70.3 kg
== END 2016-09-28 07:05 | disposition home or self-care (01) ==
LOC: CED 01:41
DX: F10.229 Alcohol dependence with intoxication, unspecified (principal); F17.200 Nicotine dependence, unspecified, uncomplicated; M54.9 Dorsalgia, unspecified; G89.29 Other chronic pain
CPT/HCPCS: 82947; 99284

== ENCOUNTER 2016-09-30 16:13 | Emergency (ER) | payer OTHER ==
[~2016-09-30] VITALS: Ht 177.8 cm; Wt 76.7 kg
== END 2016-10-01 02:30 | disposition home or self-care (01) ==
LOC: CED 16:13
DX: F10.129 Alcohol abuse with intoxication, unspecified (principal); Z98.890 Other specified postprocedural states
CPT/HCPCS: 99284

== ENCOUNTER 2016-10-04 21:00 | Inpatient (IN) | payer OTHER ==
[~2016-10-04] VITALS: Ht 180.3 cm; Wt 77.1 kg
--- NOTE | ~2016-10-04 | HP ---
Unit #: [id number] #: [id number] Patient: PEPPER VOGT [id number] [facility] [address] [place] [address] [id number] I MR#: [id number] NAME: PEPPER VOGT ROOM: 81 Age: 60 Sex: M Admission Date: 10/04/2016 : 1955 Attending Physician: Bienvenido Silva M.D. Admitting Physician: Bienvenido Silva M.D. Primary Care Physician: Primary Care Physician No HISTORY AND PHYSICAL HISTORY OF PRESENT ILLNESS The patient is a 60-year-old man who has a long history of alcohol abuse. The patient has been admitted to [facility] for detox and suicidal ideation. PAST MEDICAL HISTORY 1. Alcohol abuse. 2. Colon polyps. PAST SURGICAL HISTORY Polypectomy. ALLERGIES No known allergies. SOCIAL HISTORY Patient endorses tobacco and drinks approximately 12 beers on a daily basis. He denies any illicit drug abuse. FAMILY HISTORY Medically noncontributory. REVIEW OF SYSTEMS CONSTITUTIONAL: Denies fever or chills. HEENT: Denies sore throat, ear pain or runny nose. CARDIOVASCULAR: Denies chest pain, irregular heart rhythm or palpitations. CHEST: Denies shortness of breath or cough. No hemoptysis. GASTROINTESTINAL: Denies nausea, vomiting, diarrhea or chronic constipation. ENDOCRINE: Denies increased thirst or urination. Denies any recent weight loss or weight gain. GENITOURINARY: Denies dysuria, frequency, or hematuria. SKIN: Denies rashes. HEMATOLOGIC: Denies any increased bleeding or bruising. MUSCULOSKELETAL: Denies hot, swollen joints. No generalized muscle pain. NEUROLOGIC: Denies problems with speech, vision, numbness, tingling. Denies loss of bowel or bladder control. HOME MEDICATIONS None. PHYSICAL EXAMINATION GENERAL: Patient is awake, alert, in no acute distress. Unit #: [id number] #: [id number] Patient: PEPPER VOGT VITAL SIGNS: Temperature 98.6, heart rate 118, respirations 18, blood pressure 139/85. HEIGHT: 5 feet 11. WEIGHT: 170 pounds. HEENT: Head is atraumatic, normocephalic. Pupils equal, round and reactive. Extraocular movements are intact. No drainage from ears or nose. NECK: Supple. Trachea is midline. HEART: Regular rate and rhythm. LUNGS: Clear. ABDOMEN: Soft, nontender, nondistended. : Not done. SKIN: Warm, dry without any unusual rashes or lesions. EXTREMITIES: No clubbing or cyanosis. Patient has trace bilateral extremity edema. NEUROLOGICAL: Cranial nerves II through XII intact. No focal deficits. Sensory and motor function grossly normal. Moves all extremities. Coordination, gait unsteady, uses a wheelchair. Deep tendon reflexes intact. IMPRESSION Psychiatric admission. RECOMMENDATIONS PSYCHIATRIC: Will be per psychiatry. MEDICAL: I see no contraindication to participate in facility's activities. MEDICAL PROGNOSIS Fair. MEDICAL CONDITION Stable. Dictated by... Shaylee Mac A.P.R.N. for Annabelle aGry M.D. AM/karen TD: 10/05/2016 16:05 JOB #: [id number] HISTORY AND PHYSICAL Page 1 of 1 X Shaylee Mac APRN X HISTORY AND PHYSICAL
--- NOTE | ~2016-10-04 | PN ---
Unit #: [id number] #: [id number] Patient: PEPPER VOGT [id number] [facility] [address] [place] [address] [id number] I MR#: [id number] NAME: PEPPER VOGT ROOM: P181 Age: 60 Sex: M Admission Date: 10/04/2016 : 1955 Attending Physician: Bienvenido Silva M.D. Admitting Physician: Bienvenido Silva M.D. Primary Care Physician: Primary Care Physician eJnni DE ANDA PROGRESS NOTES DATE 10/06/2016 DISCUSSION The patient remains tremulous and ambulates with the assistance of a wheelchair which he uses as a walker. He states that he is expressing interest in going to "[facility]." He remains quite tremulous and continues to exhibit symptoms of significant alcohol withdrawal. Dictated by... Bienvenido Silva M.D. CB/karen TD: 10/06/2016 16:29 JOB #: [id number] [facility] PROGRESS NOTES Page 1 of 1 X Bienvenido Silva MD PROGRESS NOTE
--- NOTE | ~2016-10-04 | DS ---
Unit #: [id number] #: [id number] Patient: PEPPER VOGT [id number] [facility] [address] [place] [address] [id number] I MR#: [id number] NAME: PEPPER VOGT ROOM: [facility] Age: 60 Sex: M Admission Date: 10/04/2016 : 1955 Discharge Date: 10/07/2016 Attending Physician: Bienvenido Silva M.D. Primary Care Physician: Primary Care Physician No DISCHARGE SUMMARY REASON FOR ADMISSION The patient is a 60-year-old white male, admitted to the [facility] unit with recurrent abuse of alcohol and suicidal ideation. HOSPITAL COURSE The patient was admitted to the [facility] unit and placed on routine detoxification protocol for alcohol. He remained seclusive to room with little if any participation within therapeutic milieu, but by 10/07/2016 had made arrangements to stay with his sister and was denying suicidal ideation. As per his request, discharge was ordered. FINAL DIAGNOSIS Alcohol use disorder. DISPOSITION ON DISCHARGE No psychotropic or other medications were ordered at the time of discharge. FOLLOWUP Followup will take place through the auspices of community mental health resources. PROGNOSIS The patient's prognosis remains guarded. Dictated by... Bienvenido Silva M.D. CB/magdalena TD: 10/11/2016 02:36 JOB #: [id number] DISCHARGE SUMMARY Page 1 of 1 X Bienvenido Silva MD X DISCHARGE SUMMARY
--- NOTE | ~2016-10-04 | PA ---
Unit #: [id number] #: [id number] Patient: PEPPER VOGT [id number] [facility] [address] [place] [address] [id number] I MR#: [id number] NAME: PEPPER VOGT ROOM: [facility] Age: 60 Sex: M Admission Date: 10/04/2016 : 1955 Date of Assessment: 10/05/2016 Attending Physician: Bienvenido Silva M.D. Admitting Physician: Bienvenido Silva M.D. Primary Care Physician: Primary Care Physician No PSYCHIATRIC ASSESSMENT IDENTIFYING INFORMATION The patient is a 60-year-old homelessness white male admitted to the [address] [place] [address] with recurrent abuse of alcohol. CHIEF COMPLAINT Drinking. INFORMANT Patient, reliability is fair. HISTORY OF PRESENT ILLNESS The patient is a 60-year-old white male admitted after presented to this facility reporting ongoing abuse of alcohol. The patient's blood alcohol on admission was 0.160. His pulse 111 at the time of admission. The patient was reporting positive suicidal ideation with plan to slit his throat or wrist. He continues to endorse positive suicidal ideation today. He reports that he is drinking "about 3 beers a day." These are reportedly rather large quantities of beer, however. The patient last left this facility approximately 1 month ago. He maintained sobriety for no significant period of time. He is currently prescribed no psychotropic medications. For more complete history of present illness, please refer to previously dictated notes. PAST PSYCHIATRIC HISTORY Reviewed, no changes. PAST MEDICAL HISTORY Reviewed, no changes. MEDICATIONS None. ALLERGIES None. FAMILY HISTORY Noncontributory. SOCIAL HISTORY Reviewed, no changes. MENTAL STATUS EXAMINATION Examination at this time reveals the patient to be a disheveled Unit #: [id number] #: [id number] Patient: PEPPER VOGT male appearing significantly older than his stated age of 60 years. He is in significant physical distress related to alcohol withdrawal at the time of evaluation. He is awake, alert, and oriented in all spheres. His mood is dysphoric, his affect blunted. Speech is generally well coherent. There are no gross deficits in memory or cognition noted. Intelligence is judged to be in the low average range based on fund of knowledge. The patient is less than optimally cooperative during interview. He continues to report positive suicidal ideation. He denies homicidal ideation. He denies any psychotic symptoms. His judgment and insight appear to be at baseline. ASSETS AND LIABILITIES The patient's assets are to be assessed. Liabilities: Lack of resources. Ongoing substance use. DIAGNOSTIC IMPRESSION 1. Alcohol use disorder. 2. Dysthymic disorder. TREATMENT PLAN The patient remains hospitalized for safety and stabilization. Routine detoxification protocol for alcohol has been initiated, and the patient remains on suicide precautions related to threats made at the time of admission. ESTIMATED LENGTH OF STAY 3 to 5 days. The followup will take place through the auspices of community mental health resources. Dictated by... Bienvenido Silva M.D. Bonita TD: 10/05/2016 13:56 JOB #: [id number] PSYCHIATRIC ASSESSMENT Page 1 of 1 X Bienvenido Silva MD X PSYCHIATRIC ASSESSMENT
[2016-10-05 12:24] LABS: BASOPHIL# 0.1 X10e3 (0-0.3); BASOPHIL% 1.2 % (0-2.5); EOSINOPHIL# 0.1 X10e3 (0-0.7); HEMATOCRIT 37.7 % (38.0-50.0); HEMOGLOBIN 12.4 gm/dL (13.0-16.0); LYMPHOCYTE# 0.9 X10e3 (1.0-3.5); LYMPHOCYTE% 17.7 % (17.0-45.0); MEAN CELL VOLUME 99.7 FL (83-96); MEAN CORPUSCULAR HEMOGLOBIN 32.9 PG (28-34); MONOCYTE# 0.7 X10e3 (0-1.0); MONOCYTE% 15.1 % (3.0-12.0); NEUTROPHIL# 3.1 X10e3 (1.5-7.1); PLATELET COUNT 132 X10e3 (140-420); RED BLOOD COUNT 3.77 X10e (3.90-5.60); RED CELL DISTRIBUTION WIDTH 15.6 % (11.0-15.5); WHITE BLOOD COUNT 4.9 X10e3 (4.0-10.5)
[2016-10-05 12:28] LABS: DIFF IND NO
[2016-10-05 13:20] LABS: ALBUMIN SERUM 2.9 g/dL (3.5-5.0); BILIRUBIN,TOTAL 0.5 mg/dL (0.2-2.0); CALCIUM SERUM 8.5 mg/dL (8.4-10.2); CREATININE SERUM 0.5 mg/dL (0.6-1.4); POTASSIUM 3.8 mmol/L (3.5-5.1); PROTEIN TOTAL SERUM 5.5 g/dL (6.0-8.3)
[2016-10-06 09:46] LABS: URINE APPEARANCE CLEAR; URINE BILIRUBIN NEG (NEG); URINE BLOOD NEG (NEG); URINE COLOR YELLOW; URINE GLUCOSE NEG (NEG); URINE KETONE NEG (NEG); URINE LEUKOCYTE ESTERASE NEG (NEG); URINE NITRATE NEG (NEG); URINE PH 7.5 (5-8); URINE PROTEIN NEG (NEG); URINE SPECIFIC GRAVITY 1.012 (1.003-1.035)
[2016-10-06 10:17] LABS: AMPHETAMINE NEG (NEG); BARBITURATES NEG (NEG); BENZODIAZEPINES POS (NEG); COCAINE NEG (NEG); MARIJUANA NEG (NEG); OPIATES NEG (NEG); TRICYCLIC ANTIDEPRESSANTS NEG (NEG); U METHADONE NEG (NEG)
== END 2016-10-07 15:45 | disposition home or self-care (01) | DRG 897 ==
LOC: P1E 23:36
PROVIDERS: Specialist
PROC: HZ2ZZZZ Detoxification Services for Substance Abuse Treatment (ICD-10-PCS; principal; 2016-10-04)
DX: F10.10 Alcohol abuse, uncomplicated (principal); R45.851 Suicidal ideations; F34.1 Dysthymic disorder; F17.200 Nicotine dependence, unspecified, uncomplicated
CPT/HCPCS: 80053; 80307; 81003; 85025; 86592

== ENCOUNTER 2016-10-13 22:37 | Emergency (ER) | payer OTHER | END 2016-10-14 07:15 | disposition home or self-care (01) | LOC: CED 22:37 | DX: F10.229 Alcohol dependence with intoxication, unspecified (principal); F32.9 Major depressive disorder, single episode, unspecified; F17.200 Nicotine dependence, unspecified, uncomplicated | CPT/HCPCS: 99284 ==

== ENCOUNTER 2016-10-14 16:17 | Emergency (ER) | payer OTHER | END 2016-10-14 19:35 | disposition home or self-care (01) | LOC: CED 16:17 | DX: F10.129 Alcohol abuse with intoxication, unspecified (principal); Y90.9 Presence of alcohol in blood, level not specified; F17.200 Nicotine dependence, unspecified, uncomplicated | CPT/HCPCS: 99284 ==

== ENCOUNTER 2016-10-16 18:10 | Emergency (ER) | payer OTHER ==
[~2016-10-16] VITALS: Ht 177.8 cm; Wt 77.1 kg
== END 2016-10-16 22:00 | disposition home or self-care (01) ==
LOC: CED 18:10
DX: F10.129 Alcohol abuse with intoxication, unspecified (principal); F17.210 Nicotine dependence, cigarettes, uncomplicated
CPT/HCPCS: 99284

== ENCOUNTER 2016-10-18 19:32 | Emergency (ER) | payer OTHER ==
[~2016-10-18] VITALS: Ht 175.3 cm; Wt 77.1 kg
== END 2016-10-19 07:38 | disposition home or self-care (01) ==
LOC: CED 19:32
DX: F10.129 Alcohol abuse with intoxication, unspecified (principal); M54.9 Dorsalgia, unspecified; G89.29 Other chronic pain
CPT/HCPCS: 82947; 99284

== ENCOUNTER 2016-10-22 20:14 | Emergency (ER) | payer OTHER ==
[2016-10-22 21:18] LABS: BASOPHIL% 0.9 % (0-2.5); EOSINOPHIL# 0.1 X10e3 (0-0.7); EOSINOPHIL% 1.6 % (0.0-7.0); HEMATOCRIT 39.5 % (38.0-50.0); HEMOGLOBIN 13.4 gm/dL (13.0-16.0); LYMPHOCYTE% 17.6 % (17.0-45.0); MEAN CELL VOLUME 98.3 FL (83-96); MEAN CORPUSCULAR HEMOGLOBIN 33.3 PG (28-34); MEAN CORPUSCULAR HGB CONC 33.9 g/dL (30-36); MEAN PLATELET VOLUME 7.2 FL (6.5-11.5); MONOCYTE# 0.6 X10e3 (0-1.0); MONOCYTE% 11.1 % (3.0-12.0); NEUTROPHIL# 3.8 X10e3 (1.5-7.1); NEUTROPHIL% 68.8 % (40-75); PLATELET COUNT 158 X10e3 (140-420); RED BLOOD COUNT 4.02 X10e (3.90-5.60); RED CELL DISTRIBUTION WIDTH 15.2 % (11.0-15.5); WHITE BLOOD COUNT 5.6 X10e3 (4.0-10.5)
[2016-10-22 21:21] LABS: DIFF IND NO
[2016-10-22 21:26] LABS: AMPHETAMINE NEG (NEG); BARBITURATES NEG (NEG); BENZODIAZEPINES POS (NEG); COCAINE NEG (NEG); MARIJUANA NEG (NEG); OPIATES NEG (NEG); TRICYCLIC ANTIDEPRESSANTS NEG (NEG); U METHADONE NEG (NEG)
[2016-10-22 21:50] LABS: ALCOHOL BLOOD 293 mg/dL (0); BLOOD UREA NITROGEN <5 mg/dL (9-23); BUN/CREATININE RATIO 7.14; CALCIUM SERUM 8.2 mg/dL (8.4-10.2); CARBON DIOXIDE 21 mmol/L (22-31); CHLORIDE 102 mmol/L (100-111); CREATININE SERUM 0.7 mg/dL (0.6-1.4); GLOM FILT RATE Estimated 101.9 mL/min (>60); GLUCOSE FASTING 86 mg/dL (70-110); POTASSIUM 3.1 mmol/L (3.5-5.1); SODIUM 134 mmol/L (135-145)
== END 2016-10-23 10:49 ==
LOC: CED 20:14
PROVIDERS: Emergency Medicine
DX: F10.129 Alcohol abuse with intoxication, unspecified (principal); E87.6 Hypokalemia; F17.200 Nicotine dependence, unspecified, uncomplicated; Y90.8 Blood alcohol level of 240 mg/100 ml or more
CPT/HCPCS: 36415; 80048; 80307; 85025; 99284; G0480

== ENCOUNTER 2016-10-23 05:00 | Inpatient (IN) | payer OTHER ==
[~2016-10-23] VITALS: Ht 180.3 cm; Wt 77.1 kg
--- NOTE | ~2016-10-23 | DS ---
Unit #: [id number] #: [id number] Patient: PEPPER VOGT [id number] [facility] [address] [place] [address] [id number] MR#: [id number] NAME: PEPPER VOGT ROOM: [facility] Age: 60 Sex: M Admission Date: 10/23/2016 : 1955 Discharge Date: 10/26/2016 Attending Physician: Bienvenido Silva M.D. Primary Care Physician: Primary Care Physician No DISCHARGE SUMMARY REASON FOR ADMISSION The patient is a 60-year-old white male, admitted to the [address] [place] [address] for alcohol detox. HOSPITAL COURSE The patient was admitted to the [address] [place] [address] and placed on detox protocol. He remains seclusive to room throughout much of his stay in the hospital with virtually no participation within therapeutic milieu. By 10/26 the patient requested discharge and was exhibited no signs or symptoms of withdrawal. It was as per his request ordered. FINAL DIAGNOSIS Alcohol use disorder. DISPOSITION ON DISCHARGE No psychotropic or other medications were ordered at the time of discharge. FOLLOWUP Followup to take place through the auspices of community mental health resources. PROGNOSIS The patient's prognosis is considered guarded. Dictated by... Bienvenido Silva M.D. CB/william TD: 10/27/2016 04:58 JOB #: [id number] Unit #: [id number] #: [id number] Patient: PEPPER VOGT DISCHARGE SUMMARY Page 1 of 1 X Bienvenido Silva MD X DISCHARGE SUMMARY
--- NOTE | ~2016-10-23 | PN ---
Unit #: [id number] #: [id number] Patient: PEPPER VOGT [id number] [facility] [address] [place] [address] [id number] MR#: [id number] NAME: PEPPER VOGT ROOM: P180 Age: 60 Sex: M Admission Date: 10/23/2016 : 1955 Attending Physician: Bienvenido Silva M.D. Admitting Physician: Bienvenido Silva M.D. Primary Care Physician: Primary Care Physician Jenni DE ANDA PROGRESS NOTES DATE 10/25/2016 DISCUSSION The patient is abed with little participation within the therapeutic milieu. He states that he plans to [facility] upon his discharge from this facility. We continue current detox protocol. Dictated by... Bienvenido Silva M.D. OSMIN/karen TD: 10/25/2016 15:03 JOB #: [id number] [facility] PROGRESS NOTES Page 1 of 1 X Bienvenido Silva MD X PROGRESS NOTE
--- NOTE | ~2016-10-23 | HP ---
Unit #: [id number] #: [id number] Patient: PEPPER VOGT [id number] [facility] [address] [place] [address] [id number] I MR#: [id number] NAME: PEPPER VOGT ROOM: P180 Age: 60 Sex: M Admission Date: 10/23/2016 : 1955 Attending Physician: Bienvenido Silva M.D. Admitting Physician: Bienvenido Silva M.D. Primary Care Physician: Primary Care Physician No HISTORY AND PHYSICAL Patient is a 60-year-old male admitted to [facility] on 10/23/2016 to detox from alcohol. Patient had a recent admission on 10/04/2016 where a full history and physical was completed. That history and physical has been reviewed, no changes need to made. Dictated by... Larry Tillman TD: 10/25/2016 02:32 JOB #: [id number] HISTORY AND PHYSICAL Page 1 of 1 X VAN CRISTINA APRN X HISTORY AND PHYSICAL
--- NOTE | ~2016-10-23 | PA ---
Unit #: [id number] #: [id number] Patient: PEPPER VOGT [id number] [facility] [address] [place] [address] [id number] I MR#: [id number] NAME: PEPPER VOGT ROOM: 80 Age: 60 Sex: M Admission Date: 10/23/2016 : 1955 Date of Assessment: 10/24/2016 Attending Physician: Bienvenido Silva M.D. Admitting Physician: Bienvenido Silva M.D. Primary Care Physician: Primary Care Physician No PSYCHIATRIC ASSESSMENT IDENTIFYING INFORMATION The patient is a 60-year-old white male admitted in transfer from [facility] where he presented with a blood alcohol of .300 reporting a wish to detox. CHIEF COMPLAINT None given. INFORMANT Patient and chart, reliability fair. HISTORY OF PRESENT ILLNESS The patient is a 60-year-old white male admitted well known to this physician for multiple previous admissions at this facility the last of which ended on 10/07/2016. The patient is readmitted to the hospital after he had presented to the [facility] with a blood alcohol of .300. The patient did not maintain sobriety for any significant period of time after his discharge from the hospital. He was scheduled to live with his sister but this apparently did not take place as the patient is currently listed as homeless. For more complete history of present illness please refer to previous dictated notes. PAST PSYCHIATRIC HISTORY Reviewed, no changes. PAST MEDICAL HISTORY Reviewed, no changes. MEDICATIONS None. ALLERGIES None. FAMILY HISTORY Reviewed, no changes. SOCIAL HISTORY Reviewed, no changes. MENTAL STATUS EXAMINATION Examination at this time reveals the patient to be a soundly sleeping disheveled white male appearing his stated age with. Multiple attempts to Unit #: [id number] #: [id number] Patient: PEPPER VOGT arouse the patient are unsuccessful. ASSETS AND LIABILITIES ASSETS: To be assessed. LIABILITIES: Lack of resources. DIAGNOSTIC IMPRESSION Alcohol use disorder. TREATMENT PLAN The patient remains hospitalized for safety and stabilization. A routine detoxification protocol for alcohol has been initiated. The patient will participate in appropriate nick and milieu activities with an estimate length of stay in the hospital of two to three days. Dictated by... Bienvenido Silva M.D. OSMIN/william TD: 10/25/2016 00:01 JOB #: [id number] PSYCHIATRIC ASSESSMENT Page 1 of 1 X Bienvenido Silva MD PSYCHIATRIC ASSESSMENT
[2016-10-24 13:09] LABS: BILIRUBIN,TOTAL 1.9 mg/dL (0.2-2.0); CALCIUM SERUM 8.4 mg/dL (8.4-10.2); CREATININE SERUM 0.5 mg/dL (0.6-1.4); POTASSIUM 3.4 mmol/L (3.5-5.1); PROTEIN TOTAL SERUM 5.6 g/dL (6.0-8.3)
== END 2016-10-26 14:30 | DRG 897 ==
LOC: P1E 11:17
PROVIDERS: Specialist
PROC: HZ2ZZZZ Detoxification Services for Substance Abuse Treatment (ICD-10-PCS; principal; 2016-10-23)
DX: F10.10 Alcohol abuse, uncomplicated (principal); Y90.8 Blood alcohol level of 240 mg/100 ml or more
CPT/HCPCS: 36415; 80048; 80053; 80307; 85025; 86592; 99284; G0480